=== PATIENT | female | born 1980 | race Caucasian/White ===

== ENCOUNTER 2022-04-16 07:00 | Emergency (ER) | payer BC, SELFPAY ==
--- NOTE | ~2022-04-16 | US_ITS ---
US venous doppler [facility] DATE: 04/16/2022 09:50 INDICATION: Left posterior knee pain and swelling for 3 days. No known injury. TECHNIQUE: Real-time and color flow imaging and Doppler analysis of the veins of the left lower extre mity COMPARISON: 04/16/2022 left knee radiographs FINDINGS: The left greater saphenous vein is patent. There is spontaneous and phasic flow and normal augmentation and color flow signal and normal compression of the deep veins of the left lower extremi ty. IMPRESSION: No evidence of deep venous thrombosis of the left lower extremity Reviewed, dictated and finalized at [facility]. Reviewed, dictated and finalized at location [facility]. ID SUGAR MELTER
--- NOTE | ~2022-04-16 | XR_ITS ---
EXAMINATION: XR knee LT 3V DATE: 04/16/2022 08:21 INDICATION: Left knee pain. TECHNIQUE: 3 views of left knee were obtained. COMPARISON: None. FINDINGS: Bone alignment is normal. No fracture. There is moderate osteoarthritis of patellofemoral c ompartment and mild osteoarthritis of medial and lateral compartments. No knee joint effusion. There are loose bodies in the knee joint posteriorly. IMPRESSION: 1. Moderate left knee osteoarthritis. 2. Loose bodies in the posterior knee joint. Reviewed, dictated and finalized at location [facility]. [employer]
[2022-04-16 07:08] VITALS: BP 144/73; PULSE 64; RESP 18; TEMP 36.2; O2SAT 100
[2022-04-16 09:05] VITALS: BP 115/66; PULSE 61; RESP 16; O2SAT 99
--- NOTE | 2022-04-16 09:20 | ED.LOWEXIN ---
HPI - Extremity Injury (Lower) General Chief Complaint: Extremity Injury, Lower Stated Complaint: left knee pain Time Seen by Provider: 04/16/22 09:14 Source: patient Mode of arrival: ambulatory Limitations: no limitations History of Present Illness HPI Narrative: This is a 42-year-old female that presents to the emergency department for left knee pain ongoing over the last 2 days. No known injury or trauma. Reports she was going up and down a stepladder a lot on Friday. The pain is in the back of her knee and worse with ambulation. Relieved with rest. She has been taking uada-pja-zuzback pain medications. The patient was concerned she may have a DVT. Denies fever, erythema, edema, decreased range of motion, or numbness. Related Data Allergies Allergy/AdvReac Type Severity Reaction Status Date / Time No Known Allergies Allergy Unverified 12/19/18 10:41 Review of Systems Review of Systems: CONSTITUTIONAL: Denies fever CARDIOVASCULAR: Denies chest pain RESPIRATORY: Denies dyspnea. SKIN: Denies rash MUSCULOSKELETAL: Reports joint pain, and myalgia. NEUROLOGIC: Denies numbness, or weakness. All systems reviewed & are unremarkable except as noted in HPI and below PMFSH Past Medical History Medical History (Updated 04/16/22 @ 10:03 by Ro Devries PA-C) No active medical problems Social History Social History (Updated 04/16/22 @ 09:22 by Ro Devries PA-C) Smoking status: Never smoker Exam Narrative: GENERAL: Well-appearing, well-nourished, and in no acute distress. HEAD: Normocephalic, atraumatic. EYES: EOMI. CHEST: No respiratory distress. HEART: Regular rate EXTREMITIES: Normal range of motion. No edema, erythema or warmth. Normal DP pulse. Normal sensation SKIN: Warm, dry, no rash. NEURO: No focal deficits. Alert and oriented x3. PSYCH: Normal mood and affect Course Vital Signs Vital signs: Vital Signs Temperature 97.1 F L 04/16/22 07:08 Pulse Rate 64 04/16/22 07:08 Respiratory Rate 18 04/16/22 07:08 Blood Pressure 144/73 H 04/16/22 07:08 Pulse Oximetry 100 04/16/22 07:08 Oxygen Delivery Room Air 04/16/22 07:08 Temperature 97.1 F L 04/16/22 07:08 Pulse Rate 61 04/16/22 09:05 Respiratory Rate 16 04/16/22 09:05 Blood Pressure 115/66 04/16/22 09:05 Pulse Oximetry 99 04/16/22 09:05 Oxygen Delivery Room Air 04/16/22 07:08 MDM - Extremity Injury (Lower) MDM Narrative Medical decision making narrative: Patient presents to the emergency department for left posterior knee pain ongoing over the last couple of days. She is afebrile and nontoxic-appearing. She is neurovascularly intact. Left knee x-ray shows moderate osteoarthritis as well as loose bodies in the posterior knee joint. Venous Doppler of the left lower extremity is negative for DVT. Patient was updated on case findings. Placed in an Kishor wrap for support. Will be given follow-up with orthopedics. She was given warnings to return to the ER Imaging Data Radiologist's impression: ITS Impressions Knee X-Ray 04/16/22 08:29 IMPRESSION: 1. Moderate left knee osteoarthritis. 2. Loose bodies in the posterior knee joint. Venous Doppler Study 04/16/22 09:51 IMPRESSION: No evidence of deep venous thrombosis of the left lower extremity Critical Care Time Critical Care Time Critical Care Time: No Discharge Plan Discharge Clinical Impression: Acute pain of left knee Patient Disposition: Home, Self-Care Condition: Stable Instructions: Osteoarthritis (ED) Additional Instructions: Return to the ER if you experience fever, redness and swelling of your leg, weakness, numbness, or any other symptoms that are concerning to you Rest, use ice/heat, take anti-inflammatories (Aleve, Ibuprofen, Naproxen, etc) or Tylenol as needed for pain Follow up with your primary care doctor and/or orthopedics Follow-up/Referrals: Chi Enamorado MD [Physician]
--- NOTE | 2022-04-16 10:30 | PC.NURSE ---
assessed,treated and discharched by PA in waiting room; no RN contact.
== END 2022-04-16 10:08 | disposition home or self-care (01) ==
LOC: ANHED 10:12
PROVIDERS: Emergency Provider Physician Assistant; PCP Internal Medicine Gastroenterology
DX: M25.562 Pain in left knee (principal); M17.12 Unilateral primary osteoarthritis, left knee
CPT/HCPCS: 73562; 93971; 99284